=== PATIENT | female | born 1950 | race African-American/Black ===

== ENCOUNTER → 2017-03-15 | Outpatient (CLI) | payer BC ==
[~2017-03-15] MED LIST: ARIMIDEX PO; CHILDREN'S ASPI81 M1 PO; CLONIDINE0.1 PO; COZAAR 50 MG TA50 M2 PO; FENOPROFEN CAL600 MG PO; FISH OIL 1,001000 M2 PO; FOSAMAX 70 MG T70 MG PO; GLUCOTROL5 MG PO; HYDROCHLOROTHIA50 MG PO; JANUMET 50-5001 EACH PO; NABUMETONE 500500 M1 PO; NALFON400 MG PO; POTASSIUM20 PO; PRILOSEC 20 MG20 MG PO; TRAMADOL 50 MG50 MG PO; TUMS PO; VASCEPA1 GM PO; VITAMIN B-12500 MCG PO; VITAMIN D3400 UNIT PO; VITAMIN E400 UNIT PO
== END ==
LOC: RAD 13:08
DX: M46.87 Other specified inflammatory spondylopathies, lumbosacral region (principal); M54.16 Radiculopathy, lumbar region; M47.897 Other spondylosis, lumbosacral region; M43.16 Spondylolisthesis, lumbar region; M25.78 Osteophyte, vertebrae

== ENCOUNTER → 2017-03-28 | Outpatient (CLI) | payer BC ==
[~2017-03-28] VITALS: Ht 167.6 cm; Wt 87.1 kg
--- NOTE | ~2017-03-28 | HPC ---
[facility] [place] [address] PAIN MANAGEMENT CONSULTATION Name: ANDREIA FUNEZ [facility] [id number] Admission: 03/28/17 Attend Phys: Franklin Friedman DO Discharge: Date of : 50 Report #: [id number] THIS REPORT FOR: //name// CC: Franklin Corey MD DATE OF SERVICE: 03/28/2017 REFERRING PHYSICIAN: Chalo Corey MD CHIEF COMPLAINT: Axial back pain. HISTORY OF PRESENT ILLNESS: As you know, the patient is a 66-year-old female who began experiencing acute onset of axial back pain beginning 03/11/2017. The patient denies specific injury or trauma. The patient states that she sought evaluation through her PCP who provided her a prednisone taper, which gave no improvement in symptoms. She was subsequently referred to our clinic without having undergone any further conservative treatment options including physical therapy, stretching exercises, core strengthening, nor has there been any imaging studies to help assist in determination of possible pain generator. She indicates today pain is continuous, describes the pain as throbbing, places current pain score 9/10, daily average at 9/10, worst pain has been is 10/10. The patient states that nothing tends to improve pain and nothing tends to exacerbate symptoms. She has been referred to our clinic for right low back pain with acute onset, 03/11/2017. PAST MEDICAL HISTORY: 1. Diabetes mellitus type 2. 2. Asthma. 3. Hypertension. 4. History of breast cancer. PAST SURGICAL HISTORY: 1. Breast surgery. 2. Cholecystectomy. SOCIAL HISTORY: The patient denies tobacco, alcohol, IV or illicit drug use. She is employed as a city employee. She is working, not receiving workmen's compensation. She is not in litigation in regards to her pain. She is unaccompanied today. REVIEW OF SYSTEMS: Positive for headaches, wearing corrective eyewear, shortness of breath with walking, lying flat, nocturia, non-insulin dependent diabetes, hypertension, slow to heal after cuts, anemia, acute onset right low back pain without radiation. All other review of systems negative per 12-point [facility] [address] [place] [address] PAIN MANAGEMENT CONSULTATION Name: ANDREIA FUNEZ Room #: REG [facility].#: [id number] Admission: 03/28/17 Attend Phys: Franklin Friedman DO Discharge: Date of : 50 Report #: [id number] review of systems other than those listed in history of present illness. Pain impact score 50/70 indicating severe interference of daily activities secondary to pain. ALLERGIES: IODINE, CODEINE. CURRENT MEDICATIONS: Calcium carbonate 500 mg once a day, tramadol 50 mg every 6 hours p.r.n. for pain, nalfon 400 mg twice a day, vitamin E 400 units per day, cholecalciferol 400 units per day, cyanocobalamin 500 mcg per day, Janumet 50/500 twice a day, potassium chloride 20 mEq p.o. every day, omeprazole 20 mg per day, losartan 50 mg per day, Vascepa 1 gram twice a day, hydrochlorothiazide 50 mg once a day, glipizide 5 mg once a day, omega-3 fish oil 1 tab per day, clonidine 0.1 mg twice a day, aspirin 81 mg per day, Arimidex 1 mg per day, alendronate 70 mg per day. IMAGING: No imaging available. PQRS. The patient reports osteoarthritis of the hands. No rheumatoid arthritis. She indicates pain intensity today of 9/10. She is experiencing no fall risk. She uses no devices to assist with ambulation including cane, crutches or roller walker. She is not on blood thinners. She does have a history of hypertension which is treated medically. She is not on opioids and is not under opioid contract. Her risk assessment tool for opioids is low. Functional assessment is 50/70 indicating severe interference of daily activity. PHYSICAL EXAMINATION: VITAL SIGNS: Blood pressure 133/54, pulse is 92, respiratory rate 20, unlabored. The patient is 98% on room air. Height 5 feet 6 inches tall, weight 182 pounds, BMI calculated 31. GENERAL: Well-developed, well-nourished, well-hydrated 66-year-old female with acute onset of low back pain, right-sided only, no radiation of symptoms. HEENT: Normocephalic, atraumatic. Pupils are equal, round, reactive to light. Extraocular muscles are intact. Sclerae nonicteric without injection. NEUROLOGIC: Cranial nerves 2 through 12 grossly intact. Speech is fluent. The patient deemed a good historian. LUNGS: Clear, no wheeze, rhonchi or rales. CARDIOVASCULAR: Regular. No appreciable gallop, no rub. ABDOMEN: Soft, mildly obese, normoactive bowel sounds. EXTREMITIES: Show no clubbing, no cyanosis, no edema. MUSCULOSKELETAL: The patient does have some palpatory tenderness over the paraspinal musculature of lower lumbar spine, no spinous process tenderness. Seated straight leg raising negative. Supine straight leg raising negative. Edwina's test negative. Modified Gaenslen's positive for right axial low back [facility] [address] [place] [address] PAIN MANAGEMENT CONSULTATION Name: ANDREIA FUNEZ Room #: REG [facility]#: [id number] Admission: 03/28/17 Attend Phys: Franklin Friedman DO Discharge: Date of : 50 Report #: [id number] pain, no radiation of symptoms. Ankle clonus negative. Babinski is negative. Muscle bulk and tone equal and symmetrical in lower extremities, intact to light touch from L1 through S2 dermatomes. Lumbar provocation testing including extension, rotation, lateral flexion all intensify axial back pain, right-sided only. ASSESSMENT: 1. Lumbosacral spondylosis without radiculopathy. 2. Myofascial pain. 3. Axial back pain. PLAN: 1. The patient has been referred to our service by her primary care physician after an acute onset of back pain that began on 03/11/2017. The patient denies any injury or trauma that may have led to symptom development. She states she awoke on the with back pain without radiation. The pain the patient is experiencing is directly overlying the L4-L5, L5-S1 facet joints on the right. Provocation testing does confirm facet arthropathy changes on that right side, negative left. The patient and I discussed at length treatment options for facet arthropathy pain. These would include the following. 2. We discussed physical therapy, stretching exercises, core strengthening as the gold standard of treatment for facet arthropathy pain, specifically acute onset lumbar strain type of processes. We discussed medication management with nonsteroidal anti-inflammatories and heat and cold compresses applied topically. We discussed intra-articular facet injections, medial branch nerve blocks, radiofrequency lesioning for pain that is not resolved with more conservative therapy over a 6 week period of time. The patient and I discussed this today. After this long discussion, the patient chose to begin with conservative treatment. 3. The patient was sent for physical therapy twice a week for 4 weeks. The patient will then take the physical therapy processes including stretching exercises and strengthening exercises home and utilize them on a daily basis to decrease the potential for recurrence of symptoms. We have taken the liberty of providing the referral for physical therapy today as this will be necessary per her third constitution party payer prior to any interventional treatments being performed. 4. Recommend the patient initiate consistent nonsteroidal anti-inflammatory. Recommend the patient utilize nabumetone 500 mg dose 1 tab p.o. t.i.d. with meals. I have given the patient #90 tablets, 2 refills. The patient was advised to watch for side effects of dyspepsia, worsening blood pressure, lower extremity edema. She is also to watch for any other potential side effects. If she does feel she is experiencing side effects, discontinue the medication and call for further instructions. 5. We wish to thank the referring physician for the opportunity to see the patient in consultation. We will begin with conservative treatment to address axial back pain due to facet arthropathy. If this is ineffective over a week period of time, we will then move forward with interventional treatments to [address] [address] PAIN MANAGEMENT CONSULTATION Name: ANDREIA FUNEZ Room #: REG [facility]#: [id number] Admission: 03/28/17 Attend Phys: Franklin Friedman DO Discharge: Date of : 50 Report #: [id number] address the arthritic changes that do not respond to more traditional conservative treatment options. Again, we wish to thank you for the opportunity to see the patient in consultation. <ELECTRONICALLY SIGNED> By: Franklin Friedman DO 04/04/17 [id number] Franklin Friedman DO /nt
[2017-03-28 08:47] VITALS: BP 133/54
== END | disposition home or self-care (01) ==
LOC: PAIN 06:42
DX: M47.897 Other spondylosis, lumbosacral region (principal); M79.1 Myalgia; M54.5 Low back pain; E11.9 Type 2 diabetes mellitus without complications; I10 Essential (primary) hypertension; J45.909 Unspecified asthma, uncomplicated; Z85.3 Personal history of malignant neoplasm of breast; Z90.49 Acquired absence of other specified parts of digestive tract; Z98.890 Other specified postprocedural states; M19.90 Unspecified osteoarthritis, unspecified site; Z79.1 Long term (current) use of non-steroidal anti-inflammatories (NSAID); Z79.899 Other long term (current) drug therapy

== ENCOUNTER → 2017-04-17 | Outpatient (CLI) | payer BC ==
[~2017-04-17] VITALS: Ht 167.6 cm; Wt 86.6 kg
--- NOTE | ~2017-04-17 | HPC ---
[facility] [place] [address] PAIN MANAGEMENT CONSULTATION Name: ANDREIA FUNEZ Room #: REG [facility] Ike#: [id number] Admission: 04/17/17 Attend Phys: Franklin Friedman DO Discharge: Date of : 50 Report #: [id number] THIS REPORT FOR: //name// CC: Franklin Corey MD DATE OF SERVICE: 04/17/2017 REFERRING PHYSICIAN: Chalo Corey MD CHIEF COMPLAINT: Axial back pain. HISTORY OF PRESENT ILLNESS: As you know, the patient is a 66-year-old female who began experiencing acute onset of axial back pain on 03/11/2017. She denies specific trauma that may have led to symptom development. She was seen in consultation on 03/28/2017, diagnosed with lumbosacral spondylosis without radiculopathy, myofascial pain and intense axial back pain. At that visit, the patient was advised to treatment options, she chose to begin with conservative medical therapy in the form of nonsteroidal anti-inflammatories and to begin physical therapy. The patient has initiated the medication management, states no side effects except for some increasing GERD, which she has had as a longstanding medical issue. They have recently increased her omeprazole from 20 mg to 40 mg dose in hopes of improving GERD sensations. The patient has longstanding GERD that has been intermittently controlled. She is reporting good efficacy with the nabumetone therapy that in conjunction with physical therapy seems to be working very well. The patient is placing pain score today no greater than 4/10, which is a significant drop from 9/10 when we initially saw the patient. She returns today to discuss options for treatment. She indicates pain is exacerbated with sitting for any length of time, standing for any length of time, cold compresses, heat compresses, and medications along with physical therapy tend to improve pain. ALLERGIES: IODINE and CODEINE. CURRENT MEDICATIONS: Nabumetone, calcium carbonate, tramadol, nalfon, vitamin E, cholecalciferol, cyanocobalamin, Janumet, potassium, omeprazole, losartan, Vascepa, hydrochlorothiazide, glipizide, clonidine, aspirin, alendronate, and anastrozole. SOCIAL HISTORY: The patient denies tobacco, alcohol, IV or illicit drug use. She is employed, working for the city. She is unaccompanied today. IMAGING: No new imaging available. PQRS: The patient does have history of osteoarthritis, no rheumatoid arthritis. [address] [address] PAIN MANAGEMENT CONSULTATION Name: ANDREIA FUNEZ Room #: REG [facility].#: [id number] Admission: 04/17/17 Attend Phys: Franklin Friedman DO Discharge: Date of : 50 Report #: [id number] Pain intensity today 4/10. She is not a fall risk, has not had a fall in last 3 months. She is not on blood thinner. She is treated for hypertension. She is not on opioids. She has a low risk for opioid dependency. PHYSICAL EXAMINATION: VITAL SIGNS: Blood pressure 147/85, pulse 94, respiratory rate 14 and unlabored, the patient is 97% on room air, height 5 feet 6 inches tall, weight 191.0 pounds, and BMI calculated 30.8. GENERAL: Well-developed, well-nourished, well-hydrated 66-year-old female, appearing stated age, placing current pain score no greater than 4/10. HEENT: Normocephalic, atraumatic. Pupils are equal, round, and reactive to light. EXTREMITIES: Show no clubbing, no cyanosis, and no edema. MUSCULOSKELETAL: Seated straight leg raising negative. Supine straight leg raising negative. Javier's test is negative. Modified Gaenslen's positive for axial low back pain. Ankle clonus negative. Babinski is negative. ASSESSMENT: 1. Lumbosacral spondylosis without radiculopathy. 2. Myofascial pain. 3. Axial back pain. 4. Gastroesophageal reflux disease. PLAN: 1. The patient has returned today in followup visit indicating good efficacy with the combination of nabumetone and physical therapy. The patient has reported some potential side effects of the nabumetone increasing her gastroesophageal reflux symptoms. There has been a recent increase in her omeprazole in hopes of improving this symptom. She states that the increase in omeprazole was just done recently, she is yet to receive full benefit. We have also discussed the possible addition of Pepcid-AC or simply calcium carbonate tablets such as Tums to provide further improvement. We did discuss possibility of rotating the patient off of nabumetone on to another agent to determine if her symptoms could improve. The patient did not want to make that alteration even though she is experiencing the GERD symptoms, she believes this is providing excellent benefit for her ongoing pain. 2. The patient has prescriptions of nabumetone, she does not need refills at this time, she has 2 refills available to her from initial prescription, she can continue the medication as directed, we do recommend that if the patient begins to improve further, she can reduce her dose from 3 times a day to twice a day. If continue improvement is noted, then reduce to once a day, if at all possible coming off the medication. The patient will make adjustments in her therapy based on her pain levels. 3. The patient is to continue physical therapy, she has 2 more weeks of PT, but has indicated that her physical therapist may need to increase the timeframe, I advised the patient to have the physical therapist contact us in written form, [facility] [address] [place] [address] PAIN MANAGEMENT CONSULTATION Name: JELLY FUNEZTIFFANY Bailey Room #: REG [facility] Ramires#: [id number] Admission: 04/17/17 Attend Phys: Franklin Friedman DO Discharge: Date of : 50 Report #: [id number] we can then increase her physical therapy if needed for further training and stabilization. 4. We will be returning the patient's care to her primary care physician. We are pleased to see this patient has done well with these medications and we will be available to see her back as necessary. We did advise the patient not to take any other anti-inflammatory medications with her nabumetone therapy. This will reduce the risk of dyspepsia and increasing GERD. <ELECTRONICALLY SIGNED> By: Franklin Friedman DO 04/18/17 [id number] Franklin Friedman DO /nt
[2017-04-17 08:09] VITALS: BP 147/85
== END ==
LOC: PAIN 07:00
DX: M54.16 Radiculopathy, lumbar region (principal); M47.896 Other spondylosis, lumbar region; K21.9 Gastro-esophageal reflux disease without esophagitis; Z91.041 Radiographic dye allergy status; Z88.5 Allergy status to narcotic agent